=== PATIENT | female | born 1955 | race Caucasian/White ===

== ENCOUNTER → 2017-12-25 14:40 | Outpatient (CLI) | payer MEDICAID, SELFPAY ==
--- NOTE | 2017-12-25 14:41 | BI_ITS ---
MAMMOGRAPHY - BILATERAL SCREENING REASON FOR EXAM: Female, 62 years old. Routine annual screening examination. PERTINENT HISTORY: Sister with breast cancer. TECHNIQUE: Digital bilateral breast lina (3D mammographic acquisition) in the CC and MLO projections. 2-D mediolateral oblique (MLO) and craniocaudad (CC) views of both breasts were obtained. CAD: Full Field Digital Mammography with Computer Added Detection was performed. COMPARISON: Comparison is made with prior outside examination dated February 24, 2014. FINDINGS: Breast Composition: There are scattered areas of fibroglandular density. There are no dominant masses or suspicious calcifications. Benign-appearing small bilateral axillary lymph nodes. No other significant abnormalities are identified. There has been no significant change since the prior study. BI/SCREENING MAMM (CAD), BILAT IMPRESSION: Stable bilateral screening mammogram. Yearly follow-up mammogram recommended. (A) ASSESSMENT CATEGORY: BIRADS Category 2: Benign. A letter regarding these results will be sent to the patient by the facility within 30 days. Approximately 10% of breast cancers are not detected by mammography. A normal mammogram should not delay biopsy of a clinically suspicious abnormality. [id number] Electronically Signed: Arian Oliveira MD at 13:59 EDT Tel [phone], Service support ,
== END ==
PROVIDERS: Family Provider Internal Medicine; PCP Family Medicine; Visit Provider Family Medicine
DX: Z12.31 Encounter for screening mammogram for malignant neoplasm of breast (principal)
CPT/HCPCS: 77063; 77067

== ENCOUNTER 2018-01-11 08:11 | Day surgery (SDC) | payer OTHER, SELFPAY ==
[2018-01-11 08:29] VITALS: BP 154/71; PULSE 65; RESP 16; TEMP 36.4; O2SAT 100; BMI 26.4
--- NOTE | 2018-01-11 09:30 | COLBX_PTH ---
PATIENT: UNIQUE PANDEY LOC: EN U#:[id number] AGE/SX: 62/F ROOM: RE01/11/[address]: Dr. Kayce Cherry MD : 1955 BED: DIS: 01/11/2018 SPEC #: [id number] RECD: 01/11/18 12:20 STATUS: FORREST ARACELY #: [id number] MARITZA: 01/11/18 09:[address]: Kayce Cherry DEPT: SURGICAL PATHOLOGY RECD BY: Oni Burton ENTERED: 01/11/18 12:52 SP TYPE: COLON BX OTHR DR: Dr. Elizabet Conti MD Tissues: Rectum, NOS Procedures: Surgery Specimen Level IV HEADER OPERATION: Colonoscopy PRE-OP DIAGNOSIS: Constipation TISSUE SUBMITTED: Rectal polyp MICROSCOPIC DIAGNOSIS Rectal polyp, biopsy: Tubular adenoma. SJ:eric 01/12/18 MICROSCOPIC DESCRIPTION Slides are reviewed. GROSS DESCRIPTION Received in fixative is one container labeled with the patient's name and designated rectal polyp. The specimen consists of two irregular fragments of light gonsalez soft tissue that in aggregate measure 0.5 x 0.3 x 0.1 cm. The specimen is totally submitted in one cassette. / SJ:rg 01/11/18 TC:1 CPT: 99076
[2018-01-11 10:07] VITALS: BP 101/55; BP 154/71; PULSE 70; RESP 16; TEMP 36.2; O2SAT 100
--- NOTE | 2018-01-11 10:12 | OP.ENDO_ITS ---
Patient Name: Agnieszka Waldron Procedure Date: 01/11/2018 9:25 AM Date of : 1955 Age: 62 Procedure: Colonoscopy Indications: Constipation Providers: Kayce Cherry MD Medicines: Monitored Anesthesia Care Patient Profile: Last Colonoscopy: 10 years ago. Complications: No immediate complications. Procedure: Pre-Anesthesia Assessment: - Prior to the procedure, a History and Physical was performed, and patient medications and allergies were reviewed. The patient's tolerance of previous anesthesia was also reviewed. The risks and benefits of the procedure and the sedation options and risks were discussed with the patient. All questions were answered, and informed consent was obtained. Prior Anticoagulants: The patient has taken no previous anticoagulant or antiplatelet agents. ASA Grade Assessment: II - A patient with mild systemic disease. After reviewing the risks and benefits, the patient was deemed in satisfactory condition to undergo the procedure. After I obtained informed consent, the scope was passed under direct vision. Throughout the procedure, the patient's blood pressure, pulse, and oxygen saturations were monitored continuously. The colonoscope was introduced through the anus and advanced to the cecum, identified by the ileocecal valve. The colonoscopy was performed without difficulty. The patient tolerated the procedure well. The quality of the bowel preparation was good. Scope In: 9:34:40 AM Scope Withdrawal Time 0 hours 16 minutes 26 seconds Scope Out: 10:03:25 AM Total Procedure Duration Time 0 hours 28 minutes 45 seconds Findings: Hemorrhoids were found on perianal exam. Multiple small & medium-mouthed diverticula were found in the sigmoid colon, descending colon and transverse colon. A less than 5 mm polyp was found in the rectum. The polyp was sessile. The polyp was removed with a hot snare. Resection and retrieval were complete. External and internal hemorrhoids were found during retroflexion. The hemorrhoids were mild and Grade I (internal hemorrhoids that do not prolapse). Impression: - Hemorrhoids found on perianal exam. - Diverticulosis in the sigmoid colon, in the descending colon and in the transverse colon. - One less than 5 mm polyp in the rectum, removed with a hot snare. Resected and retrieved. - External and internal hemorrhoids. Recommendation: - Discharge patient to home. - High fiber diet. - Continue present medications. - Repeat colonoscopy is recommended for surveillance. The colonoscopy date will be determined after pathology results from today's exam become available for review--likely 5 years. Procedure Code(s): --- Professional --- 48817, Colonoscopy, flexible; with removal of tumor(s), polyp(s), or other lesion(s) by snare technique Diagnosis Code(s): --- Professional --- K64.0, First degree hemorrhoids K62.1, Rectal polyp K59.00, Constipation, unspecified K57.30, Diverticulosis of large intestine without perforation or abscess without bleeding CPT copyright 2017 [employer]. All rights reserved. The codes documented in this report are preliminary and upon clinical reimbursement specialist review may be revised to meet current compliance requirements. MD Kayce Lee MD 01/11/2018 10:11:39 AM This report has been signed electronically. Number of Addenda: 0 Note Initiated On: 01/11/2018 9:25 AM
[2018-01-11 10:15] VITALS: BP 113/60; BP 154/71; PULSE 62; RESP 16; O2SAT 100
[2018-01-11 10:20] VITALS: BP 128/74; BP 154/71; PULSE 55; RESP 16; O2SAT 100
[2018-01-11 10:25] VITALS: BP 104/53; BP 154/71; PULSE 52; RESP 14; TEMP 36.8; O2SAT 100
[2018-01-11 10:46] VITALS: BP 154/71
== END 2018-01-11 10:54 | disposition home or self-care (01) ==
LOC: EN 08:11 → AC 08:13
PROVIDERS: Family Provider Family Medicine; PCP Family Medicine; Visit Provider Surgery
PROC: 0DJD8ZZ Inspection of Lower Intestinal Tract, Via Natural or Artificial Opening Endoscopic (ICD-10-PCS; CPT 45378; principal; 2018-01-11 09:25)
DX: K59.00 Constipation, unspecified (principal); Z87.891 Personal history of nicotine dependence; Z80.0 Family history of malignant neoplasm of digestive organs; D12.8 Benign neoplasm of rectum; K57.30 Diverticulosis of large intestine without perforation or abscess without bleeding; K64.8 Other hemorrhoids; K64.0 First degree hemorrhoids
CPT/HCPCS: 45385; 88305; J7120